=== PATIENT | male | born 1985 | race Caucasian/White ===

== ENCOUNTER 2020-11-27 12:10 | Emergency (ER) | payer OTHER ==
[~2020-11-27] VITALS: Ht 190.5 cm; Wt 111.0 kg
[2020-11-27 13:21] VITALS: BP 124/78
[2020-11-27] MEDS ORDERED: KEFLEX500 MG PO (14:01)
== END 2020-11-27 14:24 | disposition home or self-care (01) | DRG 603 ==
LOC: ED 12:10
DX: L03.115 Cellulitis of right lower limb (principal); S80.811A Abrasion, right lower leg, initial encounter; W55.19XA Other contact with horse, initial encounter; Y93.89 Activity, other specified; Y92.89 Other specified places as the place of occurrence of the external cause; Y99.0 Civilian activity done for income or pay